=== PATIENT | male | born 1950 | race Caucasian/White ===

== ENCOUNTER 2017-04-11 06:33 | Day surgery (SDC) | payer MEDICARE, OTHER ==
[~2017-04-11 06:33] MED LIST: Lactated Ringers 1,000 ML IV SCH; cefOXitin 2 GM in Premix Bag 1 BAG IV ONE
--- NOTE | 2017-04-11 07:23 | PCM.PREANE ---
Preanesthetic Assessment - Anesthesia/Transfusion/Family Hx Anesthesia History: Prior Anesthesia Without Reaction Family History of Anesthesia Reaction: No Transfusion History: No Prior Transfusion(s) Intubation History: Unknown - Review of Systems General: No Symptoms Pulmonary: No Symptoms Cardiovascular: No Symptoms Gastrointestinal: No Symptoms, Other (h/o colon polyps '13) Neurological: No Symptoms Other: Reports: None - Physical Assessment NPO Status Date: 04/10/17 NPO Status Time: 21:00 O2 Sat by Pulse Oximetry: 97 Respiratory Rate: 16 Vital Signs: Last Vital Signs Temp 36.2 C 04/11/17 06:49 Pulse 51 L 04/11/17 06:49 Resp 16 04/11/17 06:49 BP 137/80 04/11/17 06:49 Pulse Ox 97 04/11/17 06:49 Height: 1.91 m Weight: 83.915 kg ASA Class: 3 Mental Status: Alert & Oriented x3 Airway Class: Mallampati = 2 Dentition: Reports: Normal Dentition, Implants (x1 upper front) Thyro-Mental Finger Breadths: 3 Mouth Opening Finger Breadths: 3 ROM/Head Extension: Full Lungs: Clear to Auscultation, Normal Respiratory Effort Cardiovascular: Regular Rate, Regular Rhythm - Allergies Allergies/Adverse Reactions: Allergies Allergy/AdvReac Type Severity Reaction Status Date / Time Penicillins Allergy Hives Verified 04/09/17 10:50 sulfamethoxazole Allergy Hives Verified 04/09/17 10:50 [From Bactrim] trimethoprim [From Bactrim] Allergy Hives Verified 04/09/17 10:50 - Blood Blood Available: No - Anesthesia Plan Pre-Op Medication Ordered: None - Acknowledgements Anesthesia Type Planned: MAC Pt an Appropriate Candidate for the Planned Anesthesia: Yes Alternatives and Risks of Anesthesia Discussed w Pt/Guardian: Yes Pt/Guardian Understands and Agrees with Anesthesia Plan: Yes PreAnesthesia Questionnaire HEENT History: Reports: Other (See Below) Other HEENT History: wears glasses, has one upper dental implant Cardiovascular History: Reports: Arrhythmia, Blood Clots/VTE/DVT, CAD, High Cholesterol, Hypertension, Pacemaker, Stents (x1 '11) Other Cardiovascular History: DVT,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, not on blood thiners Respiratory History: Reports: Asthma Other Respiratory History: rarely uses inhaler Gastrointestinal History: Reports: Colon Polyp, GERD Genitourinary History: Reports: Renal Calculus Other Genitourinary History: stone passed Musculoskeletal History: Reports: Neck Pain, Chronic Neurological History: Reports: Neuropathy, Peripheral Other Neuro History: tingling in legs Psychiatric History: Reports: Depression Other Psychiatric History: recent of granddaughter Endocrine/Metabolic History: Reports: Hypothyroidism, Other (See Below) ( prediabetes) Dermatologic History: Reports: Venous Stasis Dermatitis - Past Surgical History Head Surgeries/Procedures: Reports: None Cardiovascular Surgical History: Reports: Coronary Artery Stent, Other (See Below) (PM placement 04/06) Other Cardiovascular Surgeries/Procedures: insertion of vena cava filter GI Surgical History: Reports: Appendectomy, Colonoscopy (x2) Male Surgical History: Reports: Other (See Below) Other Male Surgeries/Procedures: excision of Spermatocele Endocrine Surgical History: Reports: Thyroidectomy Neurological Surgical History: Reports: Laminectomy Musculoskeletal Surgical History: Reports: Other (See Below) (left hip replacement with revision surgery) - SUBSTANCE USE Smoking Status *Q: Former Smoker Second Hand Smoke Exposure: No Days Per Week of Alcohol Use: 0 Recreational Drug Use History: No - HOME MEDS Home Medications: Home Meds traMADol HCl [Tramadol HCl] 50 mg PO TID PRN 10/21/14 [History] Amiodarone [Cordarone] 200 mg PO DAILY 04/09/17 [History] Aspirin [Adult Low Dose Aspirin EC] 81 mg PO DAILY 04/09/17 [History] Escitalopram Oxalate 10 mg PO DAILY 04/09/17 [History] Krill/Om-3/DHA/EPA/Phospho/Ast [Megared [place]-3 Krill Oil Sfgl] 1 cap PO DAILY 04/09/17 [History] Levothyroxine Sodium 88 mcg PO DAILY 04/09/17 [History] Multivitamin [Multi-Vitamin Daily] 1 tab PO DAILY 04/09/17 [History] Om3-DHA/Epa/D3/Lutein/Zeazanth [Eye [place] Advantage Softgel] 1 cap PO DAILY [History] Rosuvastatin [Crestor] 10 mg PO DAILY 04/09/17 [History] Triamcinolone Acetonide [Triamcinolone Acetonide 0.1% Crm] 1 dose TOP BID PRN [History] traZODone HCl [Trazodone HCl] 50 mg PO BEDTIME PRN 04/09/17 [History] - CURRENT (IN HOUSE) MEDS Current Meds: Current Medications Lactated Ringer's (Ringers, Lactated) 1,000 mls @ 125 mls/hr IV ASDIRECTED MACHO Last Admin: 04/11/17 06:52 Dose: 125 mls/hr Discontinued Medications Cefoxitin Sodium 2 gm/ Premix 50 mls @ 100 mls/hr IV ONETIME ONE Stop: 04/11/17 06:29
[2017-04-11] MEDS ORDERED: Midazolam 1 MG/ML 2 ML SDV ONE (07:25)
[2017-04-11] MEDS ORDERED: fentaNYL 100 MCG/2 ML SDV ONE (07:25)
[2017-04-11] MEDS ORDERED: Propofol 200 MG/20 ML SDV ONE ×3 (07:25→08:19)
[2017-04-11] MEDS ORDERED: Lactated Ringers 1,000 ML IV SCH (08:45)
--- NOTE | 2017-04-11 08:49 | PCM.OPNOTE ---
- General Post-Op/Procedure Note Date of Surgery/Procedure: 04/11/17 Operative Procedure(s): Attempted colonoscopy Pre Op Diagnosis: Personal history of colon polyps Post-Op Diagnosis: Incomplete colonoscopy secondary to poor bowel prep, and very severe sigmoid diverticulosis with angulation. Completion barium enema will be done today. Anesthesia Technique: MAC (ASA III) Primary Surgeon: Terell Fernandez Cathode Washer: Niharika Waddell Condition: Good Free Text/Narrative:: Dictation [id number] CPT CODE 88253. Procedure aborted.
[2017-04-11 09:23] VITALS: BP 121/60
--- NOTE | 2017-04-11 09:43 | OR ---
SURGEON: Terell Fernandez M.D. DATE OF PROCEDURE: 04/11/2017 OPERATION PERFORMED: Attempted colonoscopy. ANESTHESIA: MAC. ASA CLASSIFICATION: III. PREOPERATIVE DIAGNOSIS: Personal history of colon polyps. POSTOPERATIVE DIAGNOSES: 1. Severe distal sigmoid diverticulosis precluding advancement of the colonoscope. 2. Poor prep. DESCRIPTION OF PROCEDURE: The patient was taken to the endoscopy room, positioned on the endoscopy table in the left lateral decubitus position. Time-out was called for appropriate identification of the patient and procedure. Monitored anesthesia care was provided. The colonoscope was inserted into the rectum and advanced to approximately 30 to 40 cm. At that point, severe diverticulosis was identified with angulation of the colon. The prep was quite poor with thick viscous liquid as well as solid fecal material. Despite multiple attempts to maneuver the colonoscope through the sigmoid colon, we could never advance it safely running into multiple diverticula including diverticula within diverticula. It was felt that it was too dangerous to proceed with the procedure. The procedure was terminated. The patient will undergo barium enema today. No photos were taken. REN RUIZ /[id number] LOUIS
--- NOTE | 2017-04-11 16:19 | CR ---
EXAMINATION: Single contrast barium enema HISTORY: Complete colonoscopy COMPARISON: CT dated 04/22/2007 TECHNIQUE: A standard single contrast barium enema was performed. FINDINGS: Sigmoid diverticulosis is noted. Sigmoid region was less distended compared to the rest the colon, likely secondary to long-standing inflammation. There is no focal area of narrowing to sugges t a neoplastic process. No definite filling defect within the remaining of the colon. There is a refl ux into the distal ileum. The remaining colon and rectum otherwise appear normal in caliber. IMPRESSION: 1. Mild sigmoid diverticulosis with mild generalized narrowing of the sigmoid region likely secondary to chronic low level inflammation. 2. No filling defect or significant stricture identified. 3. Incompetent ileocecal valve.
== END 2017-04-11 09:25 | disposition home or self-care (01) ==
LOC: MW.SDS 06:33
PROVIDERS: ATTEND Surgery
PROC: 0DJD8ZZ Inspection of Lower Intestinal Tract, Via Natural or Artificial Opening Endoscopic (ICD-10-PCS; principal; 2017-04-11)
DX: K57.30 Diverticulosis of large intestine without perforation or abscess without bleeding (principal); Z86.010 Personal history of colon polyps; J45.20 Mild intermittent asthma, uncomplicated; F32.9 Major depressive disorder, single episode, unspecified; F51.04 Psychophysiologic insomnia; I25.10 Atherosclerotic heart disease of native coronary artery without angina pectoris; E83.19 Other disorders of iron metabolism; E78.00 Pure hypercholesterolemia, unspecified; I10 Essential (primary) hypertension; E03.9 Hypothyroidism, unspecified; M19.90 Unspecified osteoarthritis, unspecified site; Z95.0 Presence of cardiac pacemaker; Z88.1 Allergy status to other antibiotic agents; Z88.0 Allergy status to penicillin; Z79.82 Long term (current) use of aspirin; Z79.899 Other long term (current) drug therapy; Z79.891 Long term (current) use of opiate analgesic; Z90.49 Acquired absence of other specified parts of digestive tract; Z98.890 Other specified postprocedural states; Z96.649 Presence of unspecified artificial hip joint; Z87.891 Personal history of nicotine dependence
CPT/HCPCS: 45378; 74270; J2250; J3010; J7120; 00810; J2704

== ENCOUNTER 2017-05-10 08:20 | Emergency (ER) | payer MEDICARE, OTHER ==
[2017-05-10 08:33] VITALS: BP 158/67
--- NOTE | 2017-05-10 08:39 | EDM.PDOC ---
ED HPI GENERAL MEDICAL PROBLEM - General Chief Complaint: Cardiovascular Problem Stated Complaint: high bp Time Seen by Provider: 05/10/17 08:25 - History of Present Illness INITIAL COMMENTS - FREE TEXT/NARRATIVE: HISTORY AND PHYSICAL: History of present illness: Patient 58-year-old white male presents with a concern of blood pressure check he states his home machine showed elevated last night he was relatively asymptomatic he states he felt slightly flushed is no chest pain shortness of breath or other concern is main concern persists reevaluation for his blood pressure on arrival here 20 58/90 and he is asymptomatic. Patient does have a cardiac history in the form of pacemaker and is on amiodarone he states he's not been medicated for hypertension prior I discussed with him at length the need for monitoring and follow-up for this and that patients private medical doctor may initiate antihypertensive medication depending on his clinical statement Review of systems: As per history of present illness and below otherwise all systems reviewed and negative. Past medical history: As per history of present illness and as reviewed below otherwise noncontributory. Surgical history: As per history of present illness and as reviewed below otherwise noncontributory. Social history: No reported history of drug or alcohol abuse. Family history: As per history of present illness and as reviewed below otherwise noncontributory. Physical exam: HEENT: Atraumatic, normocephalic, pupils reactive, negative for conjunctival pallor or scleral icterus, mucous membranes moist, throat clear, neck supple, nontender, trachea midline. Lungs: Clear to auscultation, breath sounds equal bilaterally, chest nontender. Heart: S1S2, regular, negative for clicks, rubs, or JVD. Abdomen: Soft, nondistended, nontender. Negative for masses or hepatosplenomegaly. Negative for costovertebral tenderness. Pelvis: Stable nontender. Genitourinary: Deferred. Rectal: Deferred. Extremities: Atraumatic, negative for cords or calf pain. Neurovascular unremarkable. Neuro: Awake, alert, oriented. Cranial nerves II through XII unremarkable. Cerebellum unremarkable. Motor and sensory unremarkable throughout. Exam nonfocal. Diagnostics: None Therapeutics: None Impression: #1 medical screening exam Definitive disposition and diagnosis as appropriate pending reevaluation and review of above. - Related Data Allergies Allergy/AdvReac Type Severity Reaction Status Date / Time Penicillins Allergy Hives Verified 04/09/17 10:50 sulfamethoxazole Allergy Hives Verified 04/09/17 10:50 [From Bactrim] trimethoprim [From Bactrim] Allergy Hives Verified 04/09/17 10:50 Home Meds: Home Meds traMADol HCl [Tramadol HCl] 50 mg PO TID PRN 10/21/14 [History] Amiodarone [Cordarone] 200 mg PO DAILY 04/09/17 [History] Aspirin [Adult Low Dose Aspirin EC] 81 mg PO DAILY 04/09/17 [History] Escitalopram Oxalate 10 mg PO DAILY 04/09/17 [History] Krill/Om-3/DHA/EPA/Phospho/Ast [Megared [place]-3 Krill Oil Sfgl] 1 cap PO DAILY 04/09/17 [History] Levothyroxine Sodium 88 mcg PO DAILY 04/09/17 [History] Multivitamin [Multi-Vitamin Daily] 1 tab PO DAILY 04/09/17 [History] Om3-DHA/Epa/D3/Lutein/Zeazanth [Eye [place] Advantage Softgel] 1 cap PO DAILY [History] Rosuvastatin [Crestor] 10 mg PO DAILY 04/09/17 [History] Triamcinolone Acetonide [Triamcinolone Acetonide 0.1% Crm] 1 dose TOP BID PRN [History] traZODone HCl [Trazodone HCl] 50 mg PO BEDTIME PRN 04/09/17 [History] Past Medical History HEENT History: Reports: Other (See Below) Other HEENT History: wears glasses, has one upper dental implant Cardiovascular History: Reports: Arrhythmia, Blood Clots/VTE/DVT, CAD, High Cholesterol, Hypertension, Pacemaker, Stents (x1 '11) Other Cardiovascular History: DVT,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, not on blood thiners Respiratory History: Reports: Asthma Other Respiratory History: rarely uses inhaler Gastrointestinal History: Reports: Colon Polyp, GERD Genitourinary History: Reports: Renal Calculus Other Genitourinary History: stone passed Musculoskeletal History: Reports: Neck Pain, Chronic Neurological History: Reports: Neuropathy, Peripheral Other Neuro History: tingling in legs Psychiatric History: Reports: Depression Other Psychiatric History: recent of granddaughter Endocrine/Metabolic History: Reports: Hypothyroidism, Other (See Below) ( prediabetes) Dermatologic History: Reports: Venous Stasis Dermatitis - Past Surgical History Head Surgeries/Procedures: Reports: None Cardiovascular Surgical History: Reports: Coronary Artery Stent, Other (See Below) (PM placement 04/06) Other Cardiovascular Surgeries/Procedures: insertion of vena cava filter GI Surgical History: Reports: Appendectomy, Colonoscopy (x2) Male Surgical History: Reports: Other (See Below) Other Male Surgeries/Procedures: excision of Spermatocele Endocrine Surgical History: Reports: Thyroidectomy Neurological Surgical History: Reports: Laminectomy Musculoskeletal Surgical History: Reports: Other (See Below) (left hip replacement with revision surgery) Social & Family History - Tobacco Use Smoking Status *Q: Former Smoker Second Hand Smoke Exposure: No - Alcohol Use Days Per Week of Alcohol Use: 0 - Recreational Drug Use Recreational Drug Use: No Drug Use in Last 12 Months: No ED ROS GENERAL - Review of Systems Review Of Systems: ROS reveals no pertinent complaints other than HPI. ED EXAM, GENERAL - Physical Exam Exam: See Below (dictation) Course - Vital Signs Last Recorded V/S: Last Vital Signs Temp 36.1 C 05/10/17 08:25 Pulse 83 05/10/17 08:25 Resp 18 05/10/17 08:25 BP 158/67 H 05/10/17 08:25 Pulse Ox 97 05/10/17 08:25 Departure - Departure Time of Disposition: 08:44 Disposition: Home, Self-Care 01 Condition: Good Clinical Impression: Encounter for medical screening examination Referrals: Ney Newberry MD [Primary Care Provider] - Additional Instructions: The following information is given to patients seen in the emergency department who are being discharged to home. This information is to outline your options for follow-up care. We provide all patients seen in our emergency department with a follow-up referral. The need for follow-up, as well as the timing and circumstances, are variable depending upon the specifics of your emergency department visit. If you don't have a primary care physician on staff, we will provide you with a referral. We always advise you to contact your personal physician following an emergency department visit to inform them of the circumstance of the visit and for follow-up with them and/or the need for any referrals to a consulting specialist. The emergency department will also refer you to a specialist when appropriate. This referral assures that you have the opportunity for followup care with a specialist. All of these measure are taken in an effort to provide you with optimal care, which includes your followup. Under all circumstances we always encourage you to contact your private physician who remains a resource for coordinating your care. When calling for followup care, please make the office aware that this follow-up is from your recent emergency room visit. If for any reason you are refused follow-up, please contact the [facility] emergency department at and asked to speak to the emergency department charge nurse. Follow-up primary medical doctor 1-2 days continue current medications return as needed as discussed
== END 2017-05-10 08:52 | disposition home or self-care (01) ==
LOC: MW.ED 08:20
DX: Z01.30 Encounter for examination of blood pressure without abnormal findings (principal); K21.9 Gastro-esophageal reflux disease without esophagitis; E03.9 Hypothyroidism, unspecified; Z88.0 Allergy status to penicillin; Z88.2 Allergy status to sulfonamides; Z88.1 Allergy status to other antibiotic agents; Z79.82 Long term (current) use of aspirin; Z79.899 Other long term (current) drug therapy; Z87.891 Personal history of nicotine dependence
CPT/HCPCS: 99282; 99283

== ENCOUNTER 2018-08-16 15:38 | Emergency (ER) | payer MEDICARE, OTHER ==
--- NOTE | 2018-08-16 17:06 | EDM.PDOC ---
ED HPI GENERAL MEDICAL PROBLEM - General Chief Complaint: Abdominal Pain Stated Complaint: STOMACH PAIN Time Seen by Provider: 08/16/18 17:06 Source of Information: Reports: Patient History Limitations: Reports: No Limitations - History of Present Illness INITIAL COMMENTS - FREE TEXT/NARRATIVE: HISTORY AND PHYSICAL: History of present illness: Patient is a 68-year-old male here with complaint of lower abdominal pain that started this afternoon. He states it is a dull pain with occasional sharp pain that he rates as an 8/10. He denies fevers, chills, nausea, vomiting, diarrhea, constipation, chest pain, shortness of breath, dysuria, hematuria. Review of systems: As per history of present illness and below otherwise all systems reviewed and negative. Past medical history: As per history of present illness and as reviewed below otherwise noncontributory. Surgical history: As per history of present illness and as reviewed below otherwise noncontributory. Social history: No reported history of drug or alcohol abuse. Family history: As per history of present illness and as reviewed below otherwise noncontributory. Physical exam: General: Patient sitting comfortably in no acute distress and nontoxic appearing HEENT: Atraumatic, normocephalic, pupils reactive, negative for conjunctival pallor or scleral icterus, mucous membranes moist, throat clear, neck supple, nontender, trachea midline. No meningeal signs. Lungs: Clear to auscultation, breath sounds equal bilaterally, chest nontender. Heart: S1S2, regular, negative for clicks, rubs, or overt murmur. Abdomen: Significant tenderness to light palpation of the abdomen diffusely. Negative for masses or hepatosplenomegaly. Right costovertebral tenderness. Pelvis: Stable nontender. Genitourinary: Deferred. Rectal: Deferred. Extremities: Atraumatic, negative for cords or calf pain. Neurovascular unremarkable. Neuro: Awake, alert, oriented. Cranial nerves II through XII unremarkable. Cerebellum unremarkable. Motor and sensory unremarkable throughout. Exam nonfocal. Notes: Discussed with Dr. Tamez, he advises patient be transferred to [place] for interventional radiology and start levaquin 750mg IV. Dr. Ferrer, [facility], has accepted the patient for transfer via ground ambulance. Diagnostics: CBC, CMP, UA, lipase, CT abdomen/pelvis Therapeutics: 1L Normal Saline 4mg Morphine IV 750mg Levaquin IV Prescriptions: None Impression: Abdominal abscess, abdominal pain Plan: Dr. Ferrer, [facility] ED, has accepted the patient for transfer via ground ambulance. Definitive disposition and diagnosis as appropriate pending reevaluation and review of above. lower abdomen Pain Score (Numeric/FACES): 5 - Related Data Allergies Allergy/AdvReac Type Severity Reaction Status Date / Time Penicillins Allergy Hives Verified 04/09/17 10:50 sulfamethoxazole Allergy Hives Verified 04/09/17 10:50 [From Bactrim] trimethoprim [From Bactrim] Allergy Hives Verified 04/09/17 10:50 Home Meds: Home Meds traMADol HCl [Tramadol HCl] 50 mg PO TID PRN 10/21/14 [History] Amiodarone [Cordarone] 200 mg PO DAILY 04/09/17 [History] Aspirin [Adult Low Dose Aspirin EC] 81 mg PO DAILY 04/09/17 [History] Escitalopram Oxalate 10 mg PO DAILY 04/09/17 [History] Krill/Om-3/DHA/EPA/Phospho/Ast [Megared [place]-3 Krill Oil Sfgl] 1 cap PO DAILY 04/09/17 [History] Levothyroxine Sodium 88 mcg PO DAILY 04/09/17 [History] Multivitamin [Multi-Vitamin Daily] 1 tab PO DAILY 04/09/17 [History] Om3-DHA/Epa/D3/Lutein/Zeazanth [Eye [place] Advantage Softgel] 1 cap PO DAILY [History] Rosuvastatin [Crestor] 10 mg PO DAILY 04/09/17 [History] Triamcinolone Acetonide [Triamcinolone Acetonide 0.1% Crm] 1 dose TOP BID PRN [History] traZODone HCl [Trazodone HCl] 50 mg PO BEDTIME PRN 04/09/17 [History] Past Medical History HEENT History: Reports: Other (See Below) Other HEENT History: wears glasses, has one upper dental implant Cardiovascular History: Reports: Arrhythmia, Blood Clots/VTE/DVT, CAD, High Cholesterol, Hypertension, Pacemaker, Stents Other Cardiovascular History: DVT,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, not on blood thiners Respiratory History: Reports: Asthma Other Respiratory History: rarely uses inhaler Gastrointestinal History: Reports: Colon Polyp, GERD Genitourinary History: Reports: Renal Calculus Other Genitourinary History: stone passed Musculoskeletal History: Reports: Neck Pain, Chronic Neurological History: Reports: Neuropathy, Peripheral Other Neuro History: tingling in legs Psychiatric History: Reports: Depression Other Psychiatric History: recent of granddaughter Endocrine/Metabolic History: Reports: Hypothyroidism, Other (See Below) Dermatologic History: Reports: Venous Stasis Dermatitis - Past Surgical History Head Surgeries/Procedures: Reports: None Cardiovascular Surgical History: Reports: Coronary Artery Stent, Other (See Below) Other Cardiovascular Surgeries/Procedures: insertion of vena cava filter GI Surgical History: Reports: Appendectomy, Colonoscopy Male Surgical History: Reports: Other (See Below) Other Male Surgeries/Procedures: excision of Spermatocele Endocrine Surgical History: Reports: Thyroidectomy Neurological Surgical History: Reports: Laminectomy Musculoskeletal Surgical History: Reports: Other (See Below) Social & Family History - Tobacco Use Smoking Status *Q: Never Smoker - Caffeine Use Caffeine Use: Reports: None - Recreational Drug Use Recreational Drug Use: No ED ROS GENERAL - Review of Systems Review Of Systems: ROS reveals no pertinent complaints other than HPI. ED EXAM, GI/ABD - Physical Exam Exam: See Below (see dictation) Course - Vital Signs Last Recorded V/S: Last Vital Signs Temp 96.8 F 08/16/18 16:47 Pulse 61 08/16/18 16:47 Resp 16 08/16/18 16:47 BP 102/60 08/16/18 17:15 Pulse Ox 98 08/16/18 16:47 - Orders/Labs/Meds Orders: Active Orders 24 hr Category Date Time Status Levofloxacin/Dextrose 5%-Water [Levaquin in D5W 750 MG/ Med 08/16/18 19:35 Ordered 150 ML] 750 mg Premix Bag 1 bag IV ONETIME Labs: Laboratory Tests 08/16/18 08/16/18 08/16/18 Range/Units 17:04 17:04 18:20 WBC 7.60 (4.0-11.0) K/uL RBC 4.91 (4.50-5.90) M/uL Hgb 14.2 (13.0-17.0) g/dL Hct 42.8 (38.0-50.0) % MCV 87.2 (80.0-98.0) fL MCH 28.9 (27.0-32.0) pg MCHC 33.2 (31.0-37.0) g/dL RDW Std Deviation 45.0 (28.0-62.0) fl RDW Coeff of Rufino 14 (11.0-15.0) % Plt Count 207 (150-400) K/uL MPV 9.90 (7.40-12.00) fL Neut % (Auto) 75.2 (48.0-80.0) % Lymph % (Auto) 10.0 L (16.0-40.0) % Gaines % (Auto) 10.4 (0.0-15.0) % Eos % (Auto) 3.9 (0.0-7.0) % Baso % (Auto) 0.5 (0.0-1.5) % Neut # (Auto) 5.7 (1.4-5.7) K/uL Lymph # (Auto) 0.8 (0.6-2.4) K/uL Gaines # (Auto) 0.8 (0.0-0.8) K/uL Eos # (Auto) 0.3 (0.0-0.7) K/uL Baso # (Auto) 0.0 (0.0-0.1) K/uL Nucleated RBC % 0.0 /100WBC Nucleated RBCs # 0 K/uL Sodium 139 (136-148) mmol/L Potassium 4.8 (3.5-5.1) mmol/L Chloride 105 (98-107) mmol/L Carbon Dioxide 27.9 (21.0-32.0) mmol/L BUN 29 H (7.0-18.0) mg/dL Creatinine 1.1 (0.8-1.3) mg/dL Est Cr Clr Drug Dosing TNP Estimated GFR (MDRD) > 60.0 ml/min Glucose 104 (74-106) mg/dL Calcium 9.4 (8.5-10.1) mg/dL Total Bilirubin 0.4 (0.2-1.0) mg/dL AST 28 (15-37) IU/L ALT 34 (14-63) IU/L Alkaline Phosphatase 85 (46-116) U/L Total Protein 7.1 (6.4-8.2) g/dL Albumin 3.7 (3.4-5.0) g/dL Globulin 3.4 (2.6-4.0) g/dL Albumin/Globulin Ratio 1.1 (0.9-1.6) Lipase 297 (73-393) U/L Urine Color YELLOW Urine Appearance CLEAR Urine pH 5.5 (5.0-8.0) Ur Specific Isabel >= 1.030 (1.001-1.035) Urine Protein NEGATIVE (NEGATIVE) mg/dL Urine Glucose (UA) NEGATIVE (NEGATIVE) mg/dL Urine Ketones TRACE H (NEGATIVE) mg/dL Urine Occult Blood NEGATIVE (NEGATIVE) Urine Nitrite NEGATIVE (NEGATIVE) Urine Bilirubin NEGATIVE (NEGATIVE) Urine Urobilinogen 0.2 (<2.0) EU/dL Ur Leukocyte Esterase NEGATIVE (NEGATIVE) Meds: Medications Discontinued Medications Generic Name Dose Route Start Last Admin Trade Name Clintq PRN Reason Stop Dose Admin Sodium Chloride 1,000 mls @ 999 mls/hr 08/16/18 17:32 08/16/18 17:46 Normal Saline IV 08/16/18 18:32 999 mls/hr .BOLUS ONE Administration Morphine Sulfate 2 mg 08/16/18 17:25 08/16/18 17:46 Morphine IVPUSH 08/16/18 17:26 2 mg ONETIME ONE Administration Morphine Sulfate 2 mg 08/16/18 18:22 08/16/18 18:32 Morphine IVPUSH 08/16/18 18:23 2 mg ONETIME ONE Administration Departure - Departure Time of Disposition: 19:38 Disposition: DC/Tfer to Acute Hospital 02 Condition: Good Clinical Impression: Abdominal abscess, Abdominal pain - Discharge Information Referrals: PCP,None [Primary Care Provider] - Forms: ED Department Discharge - My Orders Last 24 Hours: My Active Orders 08/16/18 19:35 Levofloxacin/Dextrose 5%-Water [Levaquin in D5W 750 MG/150 ML] 750 mg Premix Bag 1 bag IV ONETIME - Assessment/Plan Last 24 Hours: My Active Orders 08/16/18 19:35 Levofloxacin/Dextrose 5%-Water [Levaquin in D5W 750 MG/150 ML] 750 mg Premix Bag 1 bag IV ONETIME
[2018-08-16] MEDS ORDERED: Morphine 2 MG/ML Syringe IVPUSH ONE ×3 (17:25→21:59)
[2018-08-16] MEDS ORDERED: Sodium Chloride 0.9% 1,000 ML IV ONE (17:32)
[2018-08-16 17:39] LABS: CHLORIDE,CL 105 mmol/L (98-107); SODIUM,NA 139 mmol/L (136-148)
--- NOTE | 2018-08-16 19:15 | CT ---
INDICATION: Lower abdominal pain beginning this afternoon. COMPARISON: None available TECHNIQUE: CT examination of the abdomen and pelvis was performed without contrast enhancement using 3 mm thick axial sections from the lung bases through the pubic symphysis. Oral contrast was not administered. Please note that all CT scans at this facility use dose modulation, iterative reconstruction, and/or weight-based dosing when appropriate to reduce radiation dose to as low as reasonably achievable. FINDINGS: In the abdomen, the unenhanced liver, spleen, pancreas, and adrenals are normal in appearance. There is a 3.2 centimeter cyst in the posterior interpolar left kidney. The unenhanced kidneys are otherwise normal in appearance. The gallbladder is normal in appearance. The abdominal aorta is normal in caliber with no sign of dilatation. An IVC filter is in satisfactory position. There is no sign of retroperitoneal mass or adenopathy. There is a small hiatal hernia. The rest of the stomach, loops of small bowel, and colon in the abdomen are otherwise normal in appearance. In the pelvis, the appendix is nonvisualized, but there is no sign of an inflammatory process in the area of the appendix. There is an abscess arising from the distal ileum located in the right upper pelvis, measuring 3.3 x 2.2 x 5.0 centimeters, best seen on axial image 97 series 201 and coronal image 33 series 205. This abscess is distant from the cecum and does not appear to be related to the appendix. Only loops of small bowel are seen around the abscess. It is possible that this is an abscess of a Meckel`s diverticulum. There is moderate proximal sigmoid diverticulosis without evidence of diverticulitis. The rest of the loops of small bowel and colon in the pelvis are otherwise normal in appearance. The prostate is moderately enlarged, measuring 5.4 centimeters in diameter and is otherwise normal in appearance. The urinary bladder is normal in appearance. There is no sign of pelvic or inguinal mass or adenopathy. The lung bases are clear. There is mild scoliosis of the lumbar spine convex towards the left. There is mild disc degenerative disease throughout the lumbar spine. IMPRESSION: CT of the abdomen shows a small hiatal hernia. 3.2 centimeter simple cyst in the interpolar left kidney. CT of the pelvis shows an abscess in the right upper pelvis, appearing to arise from the distal ileum, measuring 3.3 x 2.2 x 5.0 centimeters. This is distant from the normal-appearing cecum, and could be an abscess of Meckel`s diverticulum. I cannot identify the appendix, but the area of the appendix shows no sign of any inflammatory reaction. Moderate enlargement of the prostate. Please note that all CT scans at this facility use dose modulation, iterative reconstruction, and/or weight-based dosing when appropriate to reduce radiation dose to as low as reasonably achievable. Dictated by Melecio Cruz MD @ Aug 16 2018 7:01PM Signed by Dr. Melecio Cruz @ Aug 16 2018 7:13PM
[2018-08-16] MEDS ORDERED: Levofloxacin/Dextrose 5%-Water 750 MG in Premix Bag 1 BAG IV ONE (19:35)
[2018-08-16 19:53] VITALS: BP 138/60
== END 2018-08-16 22:05 ==
LOC: MW.ED 15:38
DX: L02.211 Cutaneous abscess of abdominal wall (principal); I10 Essential (primary) hypertension; Z88.0 Allergy status to penicillin; Z88.2 Allergy status to sulfonamides; Z88.8 Allergy status to other drugs, medicaments and biological substances; Z79.82 Long term (current) use of aspirin
CPT/HCPCS: 36415; 74176; 80053; 81003; 83690; 85025; 93005; 96361; 96365; 96375; 96376; 99285; J1956; J2270; J7040; 99283

== ENCOUNTER 2019-09-30 05:07 | Emergency (ER) | payer MEDICARE, OTHER ==
[2019-09-30] MEDS ORDERED: Sodium Chloride 0.9% 2.5 ML Syringe FLUSH PRN (05:24)
[2019-09-30] MEDS ORDERED: Sodium Chloride 0.9% 10 ML Syringe FLUSH PRN (05:24)
--- NOTE | 2019-09-30 06:17 | EDM.PDOC ---
ED HPI GENERAL MEDICAL PROBLEM - General Chief Complaint: Respiratory Problem Stated Complaint: WOKE UP WITH SHAKES, SOME TROUBLE BREATHING Time Seen by Provider: 09/30/19 05:31 Source of Information: Reports: Patient History Limitations: Reports: No Limitations - History of Present Illness INITIAL COMMENTS - FREE TEXT/NARRATIVE: 1-year-old male presents with body aches and coughing and occasional chills for the past 4 to 5 days. Patient reports significant coughing and body aches relieved by albuterol. Patient is have a history of asthma-like symptoms around his allergic seasons in the spring and fall. The albuterol makes him breathe better for "a day," but then is breathing and coughing gets worse again. Patient denies any measured fevers, headaches, sore throat. No sick contacts. No travel to out of the city or out of the country recently. Patient denies any chest pain, shortness of breath, fever, loose stools, dysuria , swollen joints, bug bites, rashes. - Related Data Allergies Allergy/AdvReac Type Severity Reaction Status Date / Time hydrocodone Allergy Hallucinati Verified 09/30/19 05:20 ons Penicillins Allergy Hives Verified 09/30/19 05:20 sulfamethoxazole Allergy Hives Verified 09/30/19 05:20 [From Bactrim] trimethoprim [From Bactrim] Allergy Hives Verified 09/30/19 05:20 Home Meds: Home Meds traMADol HCl [Tramadol HCl] 50 mg PO TID PRN 10/21/14 [History] Amiodarone [Cordarone] 200 mg PO DAILY 04/09/17 [History] Aspirin [Adult Low Dose Aspirin EC] 81 mg PO DAILY 04/09/17 [History] Escitalopram Oxalate 10 mg PO DAILY 04/09/17 [History] Krill/Om-3/DHA/EPA/Phospho/Ast [Megared Crandall-3 Krill Oil Sfgl] 1 cap PO DAILY 04/09/17 [History] Levothyroxine Sodium 88 mcg PO DAILY 04/09/17 [History] Multivitamin [Multi-Vitamin Daily] 1 tab PO DAILY 04/09/17 [History] Om3-DHA/Epa/D3/Lutein/Zeazanth [Eye Crandall Advantage Softgel] 1 cap PO DAILY [History] Rosuvastatin [Crestor] 10 mg PO DAILY 04/09/17 [History] Triamcinolone Acetonide [Triamcinolone Acetonide 0.1% Crm] 1 dose TOP BID PRN [History] traZODone HCl [Trazodone HCl] 50 mg PO BEDTIME PRN 04/09/17 [History] Dextromethorphan Polistirex [12-Hour Cough Relief] 30 mg PO BID PRN #30 [email or web address].[email or web address] 09/30/19 [Rx] Doxycycline [Vibramycin] 100 mg PO BID #14 cap 09/30/19 [Rx] Past Medical History HEENT History: Reports: Other (See Below) Other HEENT History: wears glasses, has one upper dental implant Cardiovascular History: Reports: Arrhythmia, Blood Clots/VTE/DVT, CAD, High Cholesterol, Hypertension, Pacemaker, Stents Other Cardiovascular History: DVT,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, not on blood thiners Respiratory History: Reports: Asthma Other Respiratory History: rarely uses inhaler Gastrointestinal History: Reports: Colon Polyp, GERD Genitourinary History: Reports: Renal Calculus Other Genitourinary History: stone passed Musculoskeletal History: Reports: Neck Pain, Chronic Neurological History: Reports: Neuropathy, Peripheral Other Neuro History: tingling in legs Psychiatric History: Reports: Depression Other Psychiatric History: recent of granddaughter Endocrine/Metabolic History: Reports: Hypothyroidism, Other (See Below) Insulin Pump Model and Fur Finisher: N/A Hematologic History: Reports: None Oncologic (Cancer) History: Reports: None Dermatologic History: Reports: Venous Stasis Dermatitis - Infectious Disease History Infectious Disease History: Reports: None - Past Surgical History Head Surgeries/Procedures: Reports: None Cardiovascular Surgical History: Reports: Coronary Artery Stent, Other (See Below) Other Cardiovascular Surgeries/Procedures: insertion of vena cava filter GI Surgical History: Reports: Appendectomy, Colonoscopy Male Surgical History: Reports: Other (See Below) Other Male Surgeries/Procedures: excision of Spermatocele Endocrine Surgical History: Reports: Thyroidectomy Neurological Surgical History: Reports: Laminectomy Musculoskeletal Surgical History: Reports: Other (See Below) Social & Family History - Family History Family Medical History: Noncontributory - Tobacco Use Smoking Status *Q: Never Smoker - Caffeine Use Caffeine Use: Reports: Tea - Recreational Drug Use Recreational Drug Use: No ED ROS GENERAL - Review of Systems Review Of Systems: Comprehensive ROS is negative, except as noted in HPI. ED EXAM, GENERAL - Physical Exam Exam: See Below Free Text/Narrative:: General: No acute distress. Comfortable. Heent: Examination revealed no pallor, no icterus, no lymphadenopathy. The patient has normal posterior pharynx, moist mucous membranes. Neck: Supple. No JVD. No rigidity. Heart: Normal rate. Reg rhythm. No murmurs appreciated. Lungs: Bilaterally clear to auscultation. No focal findings. Abdomen: Nontender, non-distended, soft, no CVA tenderness. Neuro: Pt is moving all four extremities. EOMI. PERRL. Normal speech. Skin: Exposed areas appeared normally perfused, warm, normal color with no meaningful rashes or lesions. Extremities: Peripheral examination revealed no pedal edema. Peripheral pulses were 2+. Course - Vital Signs Last Recorded V/S: Last Vital Signs Temp 97.6 F 09/30/19 05:21 Pulse 90 09/30/19 05:21 Resp 18 09/30/19 05:21 BP 113/63 09/30/19 05:21 Pulse Ox 94 L 09/30/19 05:21 - Orders/Labs/Meds Orders: Active Orders 24 hr Category Date Time Status Sodium Chloride 0.9% [Saline Flush] Med 09/30/19 05:24 Active 10 ml FLUSH ASDIRECTED PRN Sodium Chloride 0.9% [Saline Flush] Med 09/30/19 05:24 Active 2.5 ml FLUSH ASDIRECTED PRN Saline Lock Insert [OM.PC] Stat Oth 09/30/19 05:24 Ordered Medication Orders Sodium Chloride (Saline Flush) 10 ml FLUSH ASDIRECTED PRN PRN Reason: Keep Vein Open Sodium Chloride (Saline Flush) 2.5 ml FLUSH ASDIRECTED PRN PRN Reason: Keep Vein Open Labs: Laboratory Tests 09/30/19 09/30/19 Range/Units 05:50 05:50 WBC 15.04 H (4.0-11.0) K/uL RBC 4.62 (4.50-5.90) M/uL Hgb 13.0 (13.0-17.0) g/dL Hct 41.0 (38.0-50.0) % MCV 88.7 (80.0-98.0) fL MCH 28.1 (27.0-32.0) pg MCHC 31.7 (31.0-37.0) g/dL RDW Std Deviation 44.3 (28.0-62.0) fl RDW Coeff of Rufino 14 (11.0-15.0) % Plt Count 313 (150-400) K/uL MPV 9.40 (7.40-12.00) fL Neut % (Auto) 84.7 H (48.0-80.0) % Lymph % (Auto) 4.9 L (16.0-40.0) % [place] % (Auto) 8.3 (0.0-15.0) % Eos % (Auto) 1.9 (0.0-7.0) % Baso % (Auto) 0.2 (0.0-1.5) % Neut # (Auto) 12.7 H (1.4-5.7) K/uL Lymph # (Auto) 0.7 (0.6-2.4) K/uL [place] # (Auto) 1.3 H (0.0-0.8) K/uL Eos # (Auto) 0.3 (0.0-0.7) K/uL Baso # (Auto) 0.0 (0.0-0.1) K/uL Nucleated RBC % 0.0 /100WBC Nucleated RBCs # 0 K/uL Sodium 141 (136-148) mmol/L Potassium 4.6 (3.5-5.1) mmol/L Chloride 106 (98-107) mmol/L Carbon Dioxide 28.2 (21.0-32.0) mmol/L BUN 22 H (7.0-18.0) mg/dL Creatinine 1.0 (0.8-1.3) mg/dL Est Cr Clr Drug Dosing 80.98 mL/min Estimated GFR (MDRD) > 60.0 ml/min Glucose 102 (74-106) mg/dL Calcium 8.8 (8.5-10.1) mg/dL Total Bilirubin 0.7 (0.2-1.0) mg/dL AST 21 (15-37) IU/L ALT 30 (14-63) IU/L Alkaline Phosphatase 76 (46-116) U/L Troponin I < 0.050 (0.000-0.056) ng/mL Total Protein 6.6 (6.4-8.2) g/dL Albumin 3.0 L (3.4-5.0) g/dL Globulin 3.6 (2.6-4.0) g/dL Albumin/Globulin Ratio 0.8 L (0.9-1.6) Meds: Medications Generic Name Dose Route Start Last Admin Trade Name Freq PRN Reason Stop Dose Admin Sodium Chloride 10 ml 09/30/19 05:24 Saline Flush FLUSH ASDIRECTED PRN Keep Vein Open Sodium Chloride 2.5 ml 09/30/19 05:24 Saline Flush FLUSH ASDIRECTED PRN Keep Vein Open Discontinued Medications Generic Name Dose Route Start Last Admin Trade Name Freq PRN Reason Stop Dose Admin Doxycycline Hyclate 100 mg 09/30/19 07:49 09/30/19 08:00 Vibramycin PO 09/30/19 07:50 100 mg ONETIME ONE Administration - Radiology Interpretation Free Text/Narrative:: Patient has symptoms for about a week. He looks very well on exam. He is not tachycardic. He has very mild hypoxia which resolves with a deep breath suggesting atelectasis or inflammation.. X-ray with no focal findings but possible atypical pneumonia. Not considering pulmonary embolus in this patient who has a cough as his chief complaint and also body aches. This of course is not consistent with pulmonary embolus. Also the leukocytosis argues against this. Some significant white count. Given his coughing and occasional shortness of breath responding to albuterol, will entertain the idea of atypical pneumonia. Patient has somewhat soft pressures here but he says in the morning he is always lightheaded secondary to taking his amiodarone and that makes his pressure low. Patient ambulates fine. Will treat with doxycycline the patient follow-up closely with his primary care physician return to emergency with any worsening whatsoever. Departure - Departure Time of Disposition: 07:48 Disposition: DC/Tfer W/I Hosp To Swing 61 Condition: Good Clinical Impression: Coughing, Acute bronchitis - Discharge Information Prescriptions: Dextromethorphan Polistirex [12-Hour Cough Relief] 30 mg PO BID PRN #30 [email or web address].er.12h PRN Reason: Cough Doxycycline [Vibramycin] 100 mg PO BID #14 cap Instructions: Acute Bronchitis, Adult, [id number] Referrals: Ney Newberry MD [Primary Care Provider] - Forms: ED Department Discharge Additional Instructions: Consider dextromethorphan available [id number] to help with your coughing. Drink plenty of fluids. Take your antibiotic Use your albuterol as needed. Up with your primary care physician for reevaluation. Return here with any worsening whatsoever. The following information is given to patients seen in the emergency department who are being discharged to home. This information is to outline your options for follow-up care. We provide all patients seen in our emergency department with a follow-up referral. The need for follow-up, as well as the timing and circumstances, are variable depending upon the specifics of your emergency department visit. If you don't have a primary care physician on staff, we will provide you with a referral. We always advise you to contact your personal physician following an emergency department visit to inform them of the circumstance of the visit and for follow-up with them and/or the need for any referrals to a consulting specialist. The emergency department will also refer you to a specialist when appropriate. This referral assures that you have the opportunity for follow-up care with a specialist. All of these measure are taken in an effort to provide you with optimal care, which includes your follow-up. Under all circumstances we always encourage you to contact your private physician who remains a resource for coordinating your care. When calling for follow-up care, please make the office aware that this follow-up is from your recent emergency room visit. If for any reason you are refused follow-up, please contact the [facility] Emergency Department at and asked to speak to the emergency department charge nurse. Sepsis Event Note - Evaluation Sepsis Screening Result: No Definite Risk - Focused Exam Vital Signs: Vital Signs Temp Pulse Resp BP Pulse Ox 09/30/19 05:21 97.6 F 90 18 113/63 94 L Date Exam was Performed: 09/30/19 Time Exam was Performed: 08:04 - My Orders Last 24 Hours: My Active Orders 09/30/19 05:24 Sodium Chloride 0.9% [Saline Flush] 10 ml FLUSH ASDIRECTED PRN Sodium Chloride 0.9% [Saline Flush] 2.5 ml FLUSH ASDIRECTED PRN Saline Lock Insert [OM.PC] Stat - Assessment/Plan Last 24 Hours: My Active Orders 09/30/19 05:24 Sodium Chloride 0.9% [Saline Flush] 10 ml FLUSH ASDIRECTED PRN Sodium Chloride 0.9% [Saline Flush] 2.5 ml FLUSH ASDIRECTED PRN Saline Lock Insert [OM.PC] Stat
[2019-09-30 06:28] LABS: BLOOD UREA NITROGEN,BUN 22 mg/dL (7.0-18.0); CARBON DIOXIDE,CO2 28.2 mmol/L (21.0-32.0); CHLORIDE,CL 106 mmol/L (98-107); GLUCOSE RANDOM 102 mg/dL (74-106); POTASSIUM,K 4.6 mmol/L (3.5-5.1); SODIUM,NA 141 mmol/L (136-148)
--- NOTE | 2019-09-30 06:34 | CR ---
INDICATION: Shortness of breath TECHNIQUE: Chest 2 views COMPARISON: 10/21/2014 FINDINGS: Cardiovascular and mediastinum: Heart size and vasculature are normal in caliber and appearance. Pacemaker is in satisfactory position. Lungs and pleural spaces: Lungs are clear. No sign of infiltrate or mass. No sign of pleural effusion. No pneumothorax. Bones and soft tissues: No significant findings. IMPRESSION: No acute findings and no significant changes from the prior exam. Dictated by Alfa Ford MD @ Sep 30 2019 6:32AM Signed by Dr. Alfa Ford @ Sep 30 2019 6:33AM
[2019-09-30] MEDS ORDERED: Doxycycline 100 MG Cap PO ONE (07:49)
[2019-09-30 10:21] VITALS: BP 96/55; PULSE 81
== END 2019-09-30 08:00 | disposition home or self-care (01) ==
LOC: MW.ED 05:07
DX: J20.9 Acute bronchitis, unspecified (principal); I25.10 Atherosclerotic heart disease of native coronary artery without angina pectoris; E78.00 Pure hypercholesterolemia, unspecified; K21.9 Gastro-esophageal reflux disease without esophagitis; E03.9 Hypothyroidism, unspecified; Z88.5 Allergy status to narcotic agent; Z88.0 Allergy status to penicillin; Z88.2 Allergy status to sulfonamides; Z88.1 Allergy status to other antibiotic agents; Z79.82 Long term (current) use of aspirin; Z79.899 Other long term (current) drug therapy
CPT/HCPCS: 36415; 71046; 80053; 84484; 85025; 99285; A9270; 99284

== ENCOUNTER 2021-01-01 18:47 | Emergency (ER) | payer MEDICARE, OTHER ==
[2021-01-01] MEDS ORDERED: Sodium Chloride 0.9% 2.5 ML Syringe FLUSH PRN (18:49)
[2021-01-01] MEDS ORDERED: Sodium Chloride 0.9% 10 ML Syringe FLUSH PRN (18:49)
--- NOTE | 2021-01-01 18:53 | EDM.PDOC ---
ED HPI GENERAL MEDICAL PROBLEM - General Stated Complaint: WEAKNESS, FATIGUE Time Seen by Provider: 01/01/21 18:48 Source of Information: Reports: Patient History Limitations: Reports: No Limitations - History of Present Illness INITIAL COMMENTS - FREE TEXT/NARRATIVE: HISTORY AND PHYSICAL: History of present illness: Patient is a 70-year-old male who presents to the emergency room with complaints of fatigue and weakness over the past few days. Patient states he had diarrhea last week and went to the walk-in clinic and was told he had viral gastroenteritis. He started to drink Ensure and increase his fluids. Had diarrhea for approximately 3 days which has now resolved. Along with the fatigue and weakness he has been experiencing he feels like his "heart cannot keep up" when he is doing any type of physical activity describing it as palpitations. This resolves when he rests. Patient has a past medical history of CAD, hypertension, pacemaker, stents, PE/DVT with vena cava filter, asthma and hypothyroidism. Patient denies any fever, chills, headache, change in vision, syncope or near syncope. Denies any chest pain, back pain, shortness of breath or cough. Denies any abdominal pain, nausea, vomiting, diarrhea, constipation or dysuria. Has not noted any blood in urine or stool. Patient has been eating and drinking appropriately. Review of systems: As per history of present illness and below otherwise all systems reviewed and negative. Past medical history: As per history of present illness and as reviewed below otherwise noncontributory. Surgical history: As per history of present illness and as reviewed below otherwise noncontributory. Social history: See social history for further information Family history: As per history of present illness and as reviewed below otherwise noncontributory. Physical exam: General: Well developed and well nourished 70-year-old male. Alert and orientated x 3. Nontoxic in appearance and in no acute distress. Vital signs are stable and have been reviewed by me. Nursing notes were reviewed. HEENT: Atraumatic, normocephalic, pupils equal and reactive bilaterally, negative for conjunctival pallor or scleral icterus, mucous membranes moist, TMs normal bilaterally, throat clear, neck supple, nontender, trachea midline. No drooling or trismus noted. No meningeal signs. No hot potato voice noted. Lungs: Clear to auscultation bilaterally. No wheezes, rales, or rhonchi. Chest nontender. Normal work of breathing, no accessory muscles used. Heart: S1S2, regular rate and rhythm without overt murmur, gallops, or rubs. No JVD. No peripheral edema Abdomen: Soft, nondistended, nontender. Normoactive bowel sounds. Negative for masses or costovertebral tenderness. Skin: Intact, warm, dry. No lesions or rashes noted. Hematologic: No petechiae or purpra. Mucosa appropriate color and normal nail bed color and refill. Extremities: Atraumatic, moves all extremities per self without difficulty or deficits, negative for cords or calf pain. Neurovascular unremarkable. Neuro: Awake, alert, oriented. Cranial nerves II through XII unremarkable. Cerebellum unremarkable. Motor and sensory unremarkable throughout. Exam nonfocal. Psychiatric: Mood and affect are appropriate. Normal thought process. Answering questions appropriately. Notes: *This patient was seen and evaluated during the 2019 SARS-CoV-2 novel coronavirus pandemic period. Community viral transmission is ongoing at time of this encounter and the emergency department is operating under pandemic response procedures. Diagnostics are unremarkable. Chest x-ray is within normal limits. Orthostatics show no significant changes. He does feel improved after the IV fluids. I have talked with the patient about today's findings, in addition to providing specific details for plan of care. He is comfortable being discharged home. Reassessment at the time of disposition demonstrates that the patient is in no acute distress. The patient is stable for discharge, counseling was provided and we discussed in great detail signs and symptoms that would prompt them to return to the Emergency Department. Medication, follow up and supportive care measures were reviewed and discussed. Voices understanding and is agreeable to plan of care. Denies any further questions or concerns at this time. Diagnostics: CBC, CMP, UA, troponin, EKG, 1 view chest, COVID-19 Therapeutics: IV fluids Prescription: None Impression: Fatigue Plan: 1. You were evaluated today on an emergent basis. Your lab work is unremarkable. Chest x-ray is normal. Vital signs are normal. 2. You can alternate Tylenol and ibuprofen as needed for pain and fever management. 3. We encourage you to follow up with your primary care provider and/or recommended specialist in the next few days for re-evaluation and further care/management. 4. If your symptoms should worsen, new symptoms develop or any of the signs and symptoms we discussed should arise please return to the emergency room or call 911 (if needed). Definitive disposition and diagnosis as appropriate pending reevaluation and review of above. - Related Data Allergies Allergy/AdvReac Type Severity Reaction Status Date / Time hydrocodone Allergy Hallucinati Verified 01/01/21 19:00 ons Penicillins Allergy Hives Verified 01/01/21 19:00 sulfamethoxazole Allergy Hives Verified 01/01/21 19:00 [From Bactrim] trimethoprim [From Bactrim] Allergy Hives Verified 01/01/21 19:00 Home Meds: Home Meds traMADol HCl [Tramadol HCl] 50 mg PO TID PRN 10/21/14 [History] Amiodarone [Cordarone] 200 mg PO DAILY 04/09/17 [History] Aspirin [Adult Low Dose Aspirin EC] 81 mg PO DAILY 04/09/17 [History] Escitalopram Oxalate 10 mg PO DAILY 04/09/17 [History] Krill/Om-3/DHA/EPA/Phospho/Ast [Megared [place]-3 Krill Oil Sfgl] 1 cap PO DAILY 04/09/17 [History] Levothyroxine Sodium 88 mcg PO DAILY 04/09/17 [History] Multivitamin [Multi-Vitamin Daily] 1 tab PO DAILY 04/09/17 [History] Om3-DHA/Epa/D3/Lutein/Zeazanth [Eye [place] Advantage Softgel] 1 cap PO DAILY 04/09/17 [History] Rosuvastatin [Crestor] 10 mg PO DAILY 04/09/17 [History] Triamcinolone Acetonide [Triamcinolone Acetonide 0.1% Crm] 1 dose TOP BID PRN 04/09/17 [History] traZODone HCl [Trazodone HCl] 50 mg PO BEDTIME PRN 04/09/17 [History] Dextromethorphan Polistirex [12-Hour Cough Relief] 30 mg PO BID PRN #30 [email or web address] 09/30/19 [Rx] Doxycycline [Vibramycin] 100 mg PO BID #14 cap 09/30/19 [Rx] Past Medical History HEENT History: Reports: Other (See Below) Other HEENT History: wears glasses, has one upper dental implant Cardiovascular History: Reports: Arrhythmia, Blood Clots/VTE/DVT, CAD, High Cholesterol, Hypertension, Pacemaker, Stents Other Cardiovascular History: DVT,PE post Laminectomy in 2000- vena cava filter placed, not on blood thiners Respiratory History: Reports: Asthma Other Respiratory History: rarely uses inhaler Gastrointestinal History: Reports: Colon Polyp, GERD Genitourinary History: Reports: Renal Calculus Other Genitourinary History: stone passed Musculoskeletal History: Reports: Neck Pain, Chronic Neurological History: Reports: Neuropathy, Peripheral Other Neuro History: tingling in legs Psychiatric History: Reports: Depression Other Psychiatric History: recent of granddaughter Endocrine/Metabolic History: Reports: Hypothyroidism, Other (See Below) Insulin Pump Model and Retail Loan Originator: N/A Hematologic History: Reports: None Oncologic (Cancer) History: Reports: None Dermatologic History: Reports: Venous Stasis Dermatitis - Infectious Disease History Infectious Disease History: Reports: None - Past Surgical History Head Surgeries/Procedures: Reports: None Cardiovascular Surgical History: Reports: Coronary Artery Stent, Other (See Be low) Other Cardiovascular Surgeries/Procedures: insertion of vena cava filter GI Surgical History: Reports: Appendectomy, Colonoscopy Male Surgical History: Reports: Other (See Below) Other Male Surgeries/Procedures: excision of Spermatocele Endocrine Surgical History: Reports: Thyroidectomy Neurological Surgical History: Reports: Laminectomy Musculoskeletal Surgical History: Reports: Other (See Below) Social & Family History - Family History Family Medical History: No Pertinent Family History - Caffeine Use Caffeine Use: Reports: Tea ED ROS GENERAL - Review of Systems Review Of Systems: Comprehensive ROS is negative, except as noted in HPI. ED EXAM, GENERAL - Physical Exam Exam: See Below (See dictation) Course - Vital Signs Last Recorded V/S: Last Vital Signs Temp 98.2 F 01/01/21 18:57 Pulse 68 01/01/21 18:57 Resp 16 01/01/21 18:57 BP 155/78 H 01/01/21 18:57 Pulse Ox 97 01/01/21 18:57 Orthostatic Blood Pressure [ 138/69 Standing] Orthostatic Blood Pressure [ 149/71 Sitting] Orthostatic Blood Pressure [ 156/81 Supine] - Orders/Labs/Meds Orders: Active Orders 24 hr Category Date Time Status EKG Documentation Completion [RC] STAT Care 01/01/21 18:49 Active Orthostatic Vital Signs [RC] ASDIRECTED Care 01/01/21 18:58 Active Sodium Chloride 0.9% [Saline Flush] Med 01/01/21 18:49 Active 10 ml FLUSH ASDIRECTED PRN Sodium Chloride 0.9% [Saline Flush] Med 01/01/21 18:49 Active 2.5 ml FLUSH ASDIRECTED PRN Saline Lock Insert [OM.PC] Stat Oth 01/01/21 18:49 Ordered Medication Orders Sodium Chloride (Sodium Chloride 0.9% 10 Ml Syringe) 10 ml FLUSH ASDIRECTED PRN PRN Reason: Keep Vein Open Sodium Chloride (Sodium Chloride 0.9% 2.5 Ml Syringe) 2.5 ml FLUSH ASDIRECTED PRN PRN Reason: Keep Vein Open Labs: Laboratory Tests 01/01/21 01/01/21 01/01/21 Range/Units 18:53 18:53 18:53 WBC 6.56 (4.0-11.0) K/uL RBC 4.47 L (4.50-5.90) M/uL Hgb 13.0 (13.0-17.0) g/dL Hct 39.5 (38.0-50.0) % MCV 88.4 (80.0-98.0) fL MCH 29.1 (27.0-32.0) pg MCHC 32.9 (31.0-37.0) g/dL RDW Std Deviation 49.7 (28.0-62.0) fl RDW Coeff of Rufino 15 (11.0-15.0) % Plt Count 217 (150-400) K/uL MPV 9.80 (7.40-12.00) fL Neut % (Auto) 69.1 (48.0-80.0) % Lymph % (Auto) 16.6 (16.0-40.0) % [place] % (Auto) 11.4 (0.0-15.0) % Eos % (Auto) 2.4 (0.0-7.0) % Baso % (Auto) 0.5 (0.0-1.5) % Neut # (Auto) 4.5 (1.4-5.7) K/uL Lymph # (Auto) 1.1 (0.6-2.4) K/uL [place] # (Auto) 0.8 (0.0-0.8) K/uL Eos # (Auto) 0.2 (0.0-0.7) K/uL Baso # (Auto) 0.0 (0.0-0.1) K/uL Nucleated RBC % 0.0 /100WBC Nucleated RBCs # 0 K/uL Sodium 140 (136-148) mmol/L Potassium 4.6 (3.5-5.1) mmol/L Chloride 107 (98-107) mmol/L Carbon Dioxide 27.0 (21.0-32.0) mmol/L BUN 27 H (7.0-18.0) mg/dL Creatinine 1.0 (0.8-1.3) mg/dL Est Cr Clr Drug Dosing 74.11 mL/min Estimated GFR (MDRD) > 60.0 ml/min Glucose 100 (74-106) mg/dL Calcium 8.1 L (8.5-10.1) mg/dL Total Bilirubin 0.3 (0.2-1.0) mg/dL AST 31 (15-37) IU/L ALT 40 (14-63) IU/L Alkaline Phosphatase 65 (46-116) U/L Troponin I < 0.050 (0.000-0.056) ng/mL Total Protein 6.5 (6.4-8.2) g/dL Albumin 3.2 L (3.4-5.0) g/dL Globulin 3.3 (2.6-4.0) g/dL Albumin/Globulin Ratio 1.0 (0.9-1.6) TSH 3rd Generation 0.94 (0.36-3.74) uIU/mL Urine Color YELLOW Urine Appearance CLEAR Urine pH 6.0 (5.0-8.0) Ur Specific [place] >= 1.030 (1.001-1.035) Urine Protein NEGATIVE (NEGATIVE) mg/dL Urine Glucose (UA) NEGATIVE (NEGATIVE) mg/dL Urine Ketones NEGATIVE (NEGATIVE) mg/dL Urine Occult Blood NEGATIVE (NEGATIVE) Urine Nitrite NEGATIVE (NEGATIVE) Urine Bilirubin NEGATIVE (NEGATIVE) Urine Urobilinogen 0.2 (<2.0) EU/dL Ur Leukocyte Esterase NEGATIVE (NEGATIVE) Influenza Type A RNA (NEGATIVE) Influenza Type B RNA (NEGATIVE) SARS-CoV-2 RNA (CLAUDIO) (NEGATIVE) 01/01/21 Range/Units 18:53 WBC (4.0-11.0) K/uL RBC (4.50-5.90) M/uL Hgb (13.0-17.0) g/dL Hct (38.0-50.0) % MCV (80.0-98.0) fL MCH (27.0-32.0) pg MCHC (31.0-37.0) g/dL RDW Std Deviation (28.0-62.0) fl RDW Coeff of Rufino (11.0-15.0) % Plt Count (150-400) K/uL MPV (7.40-12.00) fL Neut % (Auto) (48.0-80.0) % Lymph % (Auto) (16.0-40.0) % [place] % (Auto) (0.0-15.0) % Eos % (Auto) (0.0-7.0) % Baso % (Auto) (0.0-1.5) % Neut # (Auto) (1.4-5.7) K/uL Lymph # (Auto) (0.6-2.4) K/uL [place] # (Auto) (0.0-0.8) K/uL Eos # (Auto) (0.0-0.7) K/uL Baso # (Auto) (0.0-0.1) K/uL Nucleated RBC % /100WBC Nucleated RBCs # K/uL Sodium (136-148) mmol/L Potassium (3.5-5.1) mmol/L Chloride (98-107) mmol/L Carbon Dioxide (21.0-32.0) mmol/L BUN (7.0-18.0) mg/dL Creatinine (0.8-1.3) mg/dL Est Cr Clr Drug Dosing mL/min Estimated GFR (MDRD) ml/min Glucose (74-106) mg/dL Calcium (8.5-10.1) mg/dL Total Bilirubin (0.2-1.0) mg/dL AST (15-37) IU/L ALT (14-63) IU/L Alkaline Phosphatase (46-116) U/L Troponin I (0.000-0.056) ng/mL Total Protein (6.4-8.2) g/dL Albumin (3.4-5.0) g/dL Globulin (2.6-4.0) g/dL Albumin/Globulin Ratio (0.9-1.6) TSH 3rd Generation (0.36-3.74) uIU/mL Urine Color Urine Appearance Urine pH (5.0-8.0) Ur Specific [place] (1.001-1.035) Urine Protein (NEGATIVE) mg/dL Urine Glucose (UA) (NEGATIVE) mg/dL Urine Ketones (NEGATIVE) mg/dL Urine Occult Blood (NEGATIVE) Urine Nitrite (NEGATIVE) Urine Bilirubin (NEGATIVE) Urine Urobilinogen (<2.0) EU/dL Ur Leukocyte Esterase (NEGATIVE) Influenza Type A RNA NEGATIVE (NEGATIVE) Influenza Type B RNA NEGATIVE (NEGATIVE) SARS-CoV-2 RNA (CLAUDIO) NEGATIVE (NEGATIVE) Meds: Medications Generic Name Dose Route Start Last Admin Trade Name Freq PRN Reason Stop Dose Admin Sodium Chloride 10 ml 01/01/21 18:49 Sodium Chloride 0.9% 10 Ml Syringe FLUSH ASDIRECTED PRN Keep Vein Open Sodium Chloride 2.5 ml 01/01/21 18:49 Sodium Chloride 0.9% 2.5 Ml Syringe FLUSH ASDIRECTED PRN Keep Vein Open Discontinued Medications Generic Name Dose Route Start Last Admin Trade Name Freq PRN Reason Stop Dose Admin Sodium Chloride 1,000 mls @ 999 mls/hr 01/01/21 19:06 01/01/21 19:10 Normal Saline IV 01/01/21 20:06 999 mls/hr STAT ONE Administration Departure - Departure Time of Disposition: 20:11 Disposition: Home, Self-Care 01 Clinical Impression: Fatigue Qualifiers: Fatigue type: unspecified Qualified Code(s): R53.83 - Other fatigue - Discharge Information Instructions: Weakness, [id number] Referrals: Ney Newberry MD [Primary Care Provider] - Additional Instructions: The following information is given to patients seen in the emergency department who are being discharged to home. This information is to outline your options for follow-up care. We provide all patients seen in our emergency department with a follow-up referral. The need for follow-up, as well as the timing and circumstances, are variable depending upon the specifics of your emergency department visit. If you don't have a primary care physician on staff, we will provide you with a referral. We always advise you to contact your personal physician following an emergency department visit to inform them of the circumstance of the visit and for follow-up with them and/or the need for any referrals to a consulting specialist. The emergency department will also refer you to a specialist when appropriate. This referral assures that you have the opportunity for follow-up care with a specialist. All of these measure are taken in an effort to provide you with optimal care, which includes your follow-up. Under all circumstances we always encourage you to contact your private physician who remains a resource for coordinating your care. When calling for follow-up care, please make the office aware that this follow-up is from your recent emergency room visit. If for any reason you are refused follow-up, please contact the [facility] Emergency Department at and asked to speak to the emergency department charge nurse. [facility] [address] [place] [id number] [id number] Thank you for choosing the [facility] emergency department in [place] for your medical needs today. It was a pleasure caring for you. Today you were seen in the emergency department for fatigue and weakness. 1. You were evaluated today on an emergent basis. Your lab work is unremarkable. Chest x-ray is normal. Vital signs are normal. 2. You can alternate Tylenol and ibuprofen as needed for pain and fever management. 3. We encourage you to follow up with your primary care provider and/or recommended specialist in the next few days for re-evaluation and further care/management. 4. If your symptoms should worsen, new symptoms develop or any of the signs and symptoms we discussed should arise please return to the emergency room or call 911 (if needed). Sepsis Event Note (ED) - Focused Exam Vital Signs: Vital Signs Temp Pulse Resp BP Pulse Ox 01/01/21 18:57 98.2 F 68 16 155/78 H 97 - My Orders Last 24 Hours: My Active Orders 01/01/21 18:49 EKG Documentation Completion [RC] STAT Sodium Chloride 0.9% [Saline Flush] 10 ml FLUSH ASDIRECTED PRN Sodium Chloride 0.9% [Saline Flush] 2.5 ml FLUSH ASDIRECTED PRN Saline Lock Insert [OM.PC] Stat 01/01/21 18:58 Orthostatic Vital Signs [RC] ASDIRECTED - Assessment/Plan Last 24 Hours: My Active Orders 01/01/21 18:49 EKG Documentation Completion [RC] STAT Sodium Chloride 0.9% [Saline Flush] 10 ml FLUSH ASDIRECTED PRN Sodium Chloride 0.9% [Saline Flush] 2.5 ml FLUSH ASDIRECTED PRN Saline Lock Insert [OM.PC] Stat 01/01/21 18:58 Orthostatic Vital Signs [RC] ASDIRECTED
[2021-01-01] MEDS ORDERED: Sodium Chloride 0.9% 1,000 ML IV ONE (19:06)
--- NOTE | 2021-01-01 19:06 | PCM.EKG ---
#1 Interpretation EKG Date: 01/01/21 Time: 18:54 Rhythm: NSR Rate (Beats/Min): 64 ST-T: Normal
[2021-01-01 19:39] LABS: BLOOD UREA NITROGEN,BUN 27 mg/dL (7.0-18.0); CHLORIDE,CL 107 mmol/L (98-107); GLUCOSE RANDOM 100 mg/dL (74-106); POTASSIUM,K 4.6 mmol/L (3.5-5.1); SODIUM,NA 140 mmol/L (136-148)
--- NOTE | 2021-01-01 19:51 | CR ---
INDICATION: Fatigue. Palpitations. COMPARISON: Chest x-ray dated 30 September 2019. FINDINGS: A single portable chest x-ray shows a left-sided pacemaker. Normal cardiac silhouette. The lungs show no focal pulmonary opacities. Sharp pleural margins. No pneumothorax. IMPRESSION: No evidence of acute pulmonary abnormalities. Dictated by Dewey Miller MD @ 01/01/2021 7:51:[address] Dewye Miller @ Jan 01 2021 7:51PM
[2021-01-01 19:54] LABS: CORONAVIRUS COVID-19 NAA NEGATIVE (NEGATIVE); INFLUENZA A NAA NEGATIVE (NEGATIVE); INFLUENZA B NAA NEGATIVE (NEGATIVE)
[2021-01-01 20:44] VITALS: BP 143/80; PULSE 63
== END 2021-01-01 20:25 | disposition home or self-care (01) ==
LOC: MW.ED 18:47
DX: R53.83 Other fatigue (principal); I25.10 Atherosclerotic heart disease of native coronary artery without angina pectoris; E78.00 Pure hypercholesterolemia, unspecified; E03.9 Hypothyroidism, unspecified; I10 Essential (primary) hypertension; Z88.0 Allergy status to penicillin; Z88.5 Allergy status to narcotic agent; Z88.1 Allergy status to other antibiotic agents; Z95.0 Presence of cardiac pacemaker; Z20.822 Contact with and (suspected) exposure to COVID-19; Z79.899 Other long term (current) drug therapy; Z79.82 Long term (current) use of aspirin
CPT/HCPCS: 0240U; 36415; 71045; 80053; 81003; 84443; 84484; 85025; 93005; 99285; J7030; 93010; 99283

== ENCOUNTER 2022-05-06 15:26 | Emergency (ER) | payer MEDICARE, OTHER ==
[2022-05-06] MEDS ORDERED: Ondansetron 4 MG Tab.DIS PO ONE (15:56)
[2022-05-06 17:32] VITALS: BP 135/89; PULSE 89
== END 2022-05-06 17:19 | disposition home or self-care (01) ==
LOC: MW.ED 15:26
DX: S09.90XA Unspecified injury of head, initial encounter (principal); I25.10 Atherosclerotic heart disease of native coronary artery without angina pectoris; E78.00 Pure hypercholesterolemia, unspecified; Z88.5 Allergy status to narcotic agent; Z88.0 Allergy status to penicillin; Z88.2 Allergy status to sulfonamides; Z79.899 Other long term (current) drug therapy; Z79.82 Long term (current) use of aspirin; W01.10XA Fall on same level from slipping, tripping and stumbling with subsequent striking against unspecified object, initial encounter
CPT/HCPCS: 70450; 99284; A9270

== ENCOUNTER 2024-11-03 10:03 | Emergency (ER) | payer MEDICARE, OTHER ==
[2024-11-03 10:39] VITALS: BP 127/66; PULSE 64
[2024-11-03] MEDS: Lidocaine/Epineph/Tetracaine 3 ML Syringe TOP ONE (10:48)
== END 2024-11-03 12:17 | disposition home or self-care (01) ==
LOC: MW.ED 10:03
DX: S01.112A Laceration without foreign body of left eyelid and periocular area, initial encounter (principal); I25.10 Atherosclerotic heart disease of native coronary artery without angina pectoris; E78.00 Pure hypercholesterolemia, unspecified; E03.9 Hypothyroidism, unspecified; Z75.8 Other problems related to medical facilities and other health care; Z88.5 Allergy status to narcotic agent; Z88.2 Allergy status to sulfonamides; Z88.0 Allergy status to penicillin; Z79.899 Other long term (current) drug therapy; W01.198A Fall on same level from slipping, tripping and stumbling with subsequent striking against other object, initial encounter; Y93.89 Activity, other specified
CPT/HCPCS: 12011; 70450; 72125; 99283; A9270

== ENCOUNTER 2024-11-10 08:06 | Emergency (ER) | payer MEDICARE, OTHER ==
[2024-11-10 08:19] VITALS: BP 119/60; PULSE 66
== END 2024-11-10 08:34 | disposition left against medical advice (07) ==
LOC: MW.ED 08:06
DX: S01.112D Laceration without foreign body of left eyelid and periocular area, subsequent encounter (principal); X58.XXXD Exposure to other specified factors, subsequent encounter
CPT/HCPCS: 99281

== ENCOUNTER 2024-11-13 14:28 | Emergency (ER) | payer MEDICARE, OTHER ==
[2024-11-13 15:09] VITALS: BP 127/64; PULSE 70
== END 2024-11-13 16:35 | disposition home or self-care (01) ==
LOC: MW.ED 14:28
DX: S01.21XA Laceration without foreign body of nose, initial encounter (principal); I25.10 Atherosclerotic heart disease of native coronary artery without angina pectoris; E78.00 Pure hypercholesterolemia, unspecified; E03.9 Hypothyroidism, unspecified; Z88.5 Allergy status to narcotic agent; Z88.0 Allergy status to penicillin; Z88.2 Allergy status to sulfonamides; Z79.899 Other long term (current) drug therapy; Z79.890 Hormone replacement therapy; Z95.0 Presence of cardiac pacemaker; Z75.3 Unavailability and inaccessibility of health-care facilities; W18.39XA Other fall on same level, initial encounter; Y93.89 Activity, other specified
CPT/HCPCS: 12011; 70450; 70450-26; 70486; 70486-26; 99282; 99283